=== PATIENT | male | born 1925 | race Caucasian/White ===

== ENCOUNTER 2016-06-28 07:09 | Outpatient (CLI) | payer MEDICARE | END 2016-06-28 07:10 | disposition home or self-care (01) | DX: I74.8 Embolism and thrombosis of other arteries (principal) ==

== ENCOUNTER 2016-07-19 07:35 | Outpatient (CLI) | payer MEDICARE | END 2016-07-19 07:36 | disposition home or self-care (01) | DX: I74.8 Embolism and thrombosis of other arteries (principal) ==

== ENCOUNTER 2016-08-09 07:29 | Outpatient (CLI) | payer MEDICARE | END 2016-08-09 07:30 | disposition home or self-care (01) | DX: I74.8 Embolism and thrombosis of other arteries (principal) ==

== ENCOUNTER 2016-08-12 | Outpatient (CLI) | payer MEDICARE, OTHER | END 2016-08-12 08:33 | disposition short-term general hospital (02) | CPT/HCPCS: A0170; A0425; A0427 ==

== ENCOUNTER 2016-08-20 07:05 | Outpatient (CLI) | payer MEDICARE, OTHER | END 2016-08-20 07:06 | disposition home or self-care (01) | DX: I74.8 Embolism and thrombosis of other arteries (principal) ==

== ENCOUNTER 2016-08-20 08:44 | Outpatient (CLI) | payer MEDICARE, OTHER | END 2016-08-20 08:45 | disposition short-term general hospital (02) | DX: R07.2 Precordial pain (principal); S81.802A Unspecified open wound, left lower leg, initial encounter; S30.1XXA Contusion of abdominal wall, initial encounter; X58.XXXA Exposure to other specified factors, initial encounter; Z95.5 Presence of coronary angioplasty implant and graft | CPT/HCPCS: A0425; A0427 ==

== ENCOUNTER 2016-08-31 11:07 | Outpatient (CLI) | payer MEDICARE, OTHER | END 2016-08-31 11:08 | disposition home or self-care (01) | DX: I25.10 Atherosclerotic heart disease of native coronary artery without angina pectoris (principal); I20.9 Angina pectoris, unspecified ==

== ENCOUNTER 2016-09-11 07:08 | Outpatient (CLI) | payer MEDICARE, OTHER | END 2016-09-11 07:09 | disposition home or self-care (01) | DX: I74.8 Embolism and thrombosis of other arteries (principal) ==

== ENCOUNTER 2016-09-25 07:25 | Outpatient (CLI) | payer MEDICARE, OTHER | END 2016-09-25 07:26 | disposition home or self-care (01) | DX: I74.8 Embolism and thrombosis of other arteries (principal) ==

== ENCOUNTER 2016-10-16 07:19 | Outpatient (CLI) | payer MEDICARE, OTHER | END 2016-10-16 07:20 | disposition home or self-care (01) | DX: I74.8 Embolism and thrombosis of other arteries (principal) ==

== ENCOUNTER 2016-11-16 07:33 | Outpatient (CLI) | payer MEDICARE, OTHER | END 2016-11-16 07:34 | disposition home or self-care (01) | DX: I74.8 Embolism and thrombosis of other arteries (principal) ==

== ENCOUNTER 2016-11-23 07:09 | Outpatient (CLI) | payer MEDICARE, OTHER | END 2016-11-23 07:10 | disposition home or self-care (01) | LOC: LAB.F 07:09 | PROVIDERS: ATTEND Internal Medicine | DX: I74.8 Embolism and thrombosis of other arteries (principal) | CPT/HCPCS: 85610 ==

== ENCOUNTER 2016-12-07 07:08 | Outpatient (CLI) | payer MEDICARE, OTHER | END 2016-12-07 07:09 | disposition home or self-care (01) | LOC: LAB.F 07:08 | PROVIDERS: ATTEND Internal Medicine | DX: I74.8 Embolism and thrombosis of other arteries (principal) | CPT/HCPCS: 85610 ==

== ENCOUNTER 2016-12-13 11:29 | Outpatient (CLI) | payer MEDICARE, OTHER ==
[2016-12-13 12:27] LABS: BASOPHILS % (AUTO) 0.4 %; EOSINOPHILS # (AUTO) 0.4 10^3/uL (0.0-0.7); HCT - HEMATOCRIT 30.6 % (42.0-52.0); HGB - HEMOGLOBIN 10.2 g/dL (14.0-18.0); LYMPHOCYTES # (AUTO) 1.1 10^3/uL (1.5-3.5); LYMPHOCYTES % (AUTO) 19.3 %; MEAN CORPUSCULAR HEMOGLOBIN 32.2 pg (27.0-31.0); MEAN CORPUSCULAR HGB CONC 33.3 g/dL (32.0-36.0); MEAN CORPUSCULAR VOLUME 96.8 fL (80.0-94.0); MEAN PLATELET VOLUME 8.4 fL (7.4-11.4); MONOCYTES % (AUTO) 16.7 %; NEUTROPHILS # (AUTO) 3.4 10^3/uL (1.5-6.6); NEUTROPHILS % (AUTO) 56.6 %; NUCLEATED RED BLOOD CELLS AUTO 0.1 /100WBC; RED BLOOD COUNT 3.16 10^6/uL (4.70-6.10); RED CELL DISTRIBUTION WIDTH 14.3 % (12.0-15.0)
[2016-12-13 12:39] LABS: ALBUMIN/GLOBULIN RATIO 1.3 (1.0-2.2); BILIRUBIN,TOTAL 0.9 mg/dL (0.2-1.0); CALCIUM 8.8 mg/dL (8.5-10.3); CREATININE 1.6 mg/dL (0.6-1.2); POTASSIUM 4.7 mmol/L (3.5-5.0); TOTAL PROTEIN 6.3 g/dL (6.7-8.2)
== END 2016-12-13 11:30 | disposition home or self-care (01) ==
LOC: LAB 11:29
PROVIDERS: ATTEND Internal Medicine Cardiovascular Disease
DX: I25.10 Atherosclerotic heart disease of native coronary artery without angina pectoris (principal)
CPT/HCPCS: 36415; 80053; 85025

== ENCOUNTER 2016-12-31 07:14 | Outpatient (CLI) | payer MEDICARE, OTHER | END 2016-12-31 07:15 | disposition home or self-care (01) | LOC: LAB.F 07:14 | PROVIDERS: ATTEND Internal Medicine | DX: I74.8 Embolism and thrombosis of other arteries (principal) | CPT/HCPCS: 85610 ==

== ENCOUNTER 2016-12-31 07:16 | Outpatient (CLI) | payer MEDICARE, OTHER ==
[2016-12-31 12:55] LABS: CALCIUM 9.3 mg/dL (8.5-10.3); CREATININE 1.8 mg/dL (0.6-1.2); POTASSIUM 4.5 mmol/L (3.5-5.0)
== END 2016-12-31 07:17 | disposition home or self-care (01) ==
LOC: LAB.F 07:16
PROVIDERS: ATTEND Internal Medicine Cardiovascular Disease
DX: I25.10 Atherosclerotic heart disease of native coronary artery without angina pectoris (principal); R60.0 Localized edema
CPT/HCPCS: 36415; 80048; 85610

== ENCOUNTER 2017-01-04 07:19 | Outpatient (CLI) | payer MEDICARE, OTHER | END 2017-01-04 07:20 | disposition home or self-care (01) | LOC: LAB.F 07:19 | PROVIDERS: ATTEND Internal Medicine | DX: I74.8 Embolism and thrombosis of other arteries (principal) | CPT/HCPCS: 85610 ==

== ENCOUNTER 2017-01-18 07:16 | Outpatient (CLI) | payer MEDICARE, OTHER | END 2017-01-18 07:17 | disposition home or self-care (01) | LOC: LAB.F 07:16 | PROVIDERS: ATTEND Internal Medicine | DX: I74.8 Embolism and thrombosis of other arteries (principal) | CPT/HCPCS: 85610 ==

== ENCOUNTER 2017-01-28 07:25 | Outpatient (CLI) | payer MEDICARE, OTHER | END 2017-01-28 07:26 | disposition home or self-care (01) | LOC: LAB.F 07:25 | PROVIDERS: ATTEND Internal Medicine | DX: I74.8 Embolism and thrombosis of other arteries (principal) | CPT/HCPCS: 85610 ==

== ENCOUNTER 2017-01-31 11:50 | Outpatient (CLI) | payer MEDICARE, OTHER ==
[2017-01-31 12:36] LABS: CALCIUM 8.9 mg/dL (8.5-10.3); CREATININE 1.8 mg/dL (0.6-1.2); MAGNESIUM 2.4 mg/dL (1.7-2.8); POTASSIUM 4.2 mmol/L (3.5-5.0)
== END 2017-01-31 11:51 | disposition home or self-care (01) ==
LOC: LAB 11:50
PROVIDERS: ATTEND Internal Medicine Cardiovascular Disease
DX: N18.9 Chronic kidney disease, unspecified (principal)
CPT/HCPCS: 36415; 80048; 83735

== ENCOUNTER 2017-02-04 11:18 | Outpatient (CLI) | payer MEDICARE, OTHER | END 2017-02-04 11:19 | disposition home or self-care (01) | LOC: DI 11:18 | PROVIDERS: ATTEND Internal Medicine Cardiovascular Disease | DX: I50.9 Heart failure, unspecified (principal); I51.7 Cardiomegaly; Z95.0 Presence of cardiac pacemaker | CPT/HCPCS: 93306 ==

== ENCOUNTER 2017-02-11 08:00 | Outpatient (CLI) | payer MEDICARE, OTHER | END 2017-02-11 08:01 | disposition home or self-care (01) | LOC: LAB.F 08:00 | PROVIDERS: ATTEND Internal Medicine | DX: I74.8 Embolism and thrombosis of other arteries (principal) | CPT/HCPCS: 85610 ==

== ENCOUNTER 2017-03-04 07:16 | Outpatient (CLI) | payer MEDICARE, OTHER | END 2017-03-04 07:17 | disposition home or self-care (01) | LOC: LAB.F 07:16 | PROVIDERS: ATTEND Internal Medicine | DX: I74.8 Embolism and thrombosis of other arteries (principal) | CPT/HCPCS: 85610 ==

== ENCOUNTER 2017-04-01 07:21 | Outpatient (CLI) | payer MEDICARE, OTHER | END 2017-04-01 07:22 | disposition home or self-care (01) | LOC: LAB.F 07:21 | PROVIDERS: ATTEND Internal Medicine | DX: I74.8 Embolism and thrombosis of other arteries (principal) | CPT/HCPCS: 85610 ==

== ENCOUNTER 2017-04-08 03:10 | Outpatient (CLI) | payer MEDICARE, OTHER | END 2017-04-08 03:11 | disposition critical access hospital (66) | LOC: EMS 03:10 | PROVIDERS: ATTEND Surgery | DX: R06.02 Shortness of breath (principal); R10.9 Unspecified abdominal pain | CPT/HCPCS: A0425; A0427 ==

== ENCOUNTER 2017-04-08 03:33 | Inpatient (IN) | payer MEDICARE, OTHER ==
[2017-04-08] MEDS ORDERED: FUROSEMIDE 40 MG/4 ML VIAL IVP STA (04:00)
[2017-04-08 04:02] LABS: BASOPHILS % (AUTO) 0.2 %; EOSINOPHILS # (AUTO) 0.1 10^3/uL (0.0-0.7); EOSINOPHILS % (AUTO) 1.6 %; HCT - HEMATOCRIT 30.6 % (42.0-52.0); HGB - HEMOGLOBIN 10.3 g/dL (14.0-18.0); LYMPHOCYTES # (AUTO) 0.8 10^3/uL (1.5-3.5); LYMPHOCYTES % (AUTO) 9.5 %; MEAN CORPUSCULAR HEMOGLOBIN 32.5 pg (27.0-31.0); MEAN CORPUSCULAR HGB CONC 33.6 g/dL (32.0-36.0); MEAN CORPUSCULAR VOLUME 96.7 fL (80.0-94.0); MEAN PLATELET VOLUME 8.9 fL (7.4-11.4); MONOCYTES # (AUTO) 0.3 10^3/uL (0.0-1.0); MONOCYTES % (AUTO) 3.4 %; NEUTROPHILS # (AUTO) 7.3 10^3/uL (1.5-6.6); NEUTROPHILS % (AUTO) 85.3 %; RED BLOOD COUNT 3.17 10^6/uL (4.70-6.10); RED CELL DISTRIBUTION WIDTH 13.9 % (12.0-15.0); UNCORRECTED WHITE BLOOD COUNT 8.6 x10^3/uL; WHITE BLOOD COUNT 8.6 x10^3/uL (4.8-10.8)
--- NOTE | 2017-04-08 04:02 | ED Physician Documentation ---
PD HPI DYSPNEA - Stated complaint Stated Complaint: SOA/ABD PAIN - Chief complaint Chief Complaint: Resp - History obtained from History obtained from: Patient, Family, EMS - History of Present Illness Timing - onset: Today Timing - onset during: Light activity Timing - details: Abrupt onset, Still present Improved by: O2, Sitting up Worsened by: Exertion Associated symptoms: Cough, Wheezing, Diaphoresis, Bilateral edema. No: Fever, Chest pain / discomfort, Palpitations Similar symptoms before: Work up / diagnostics, Treatment Recently seen: Not recently seen - Additional information Additional information: Patient is an 89 year old male with extensive cardiac history who is presenting to the emergency department for shortness of breath. According to patient, family and ems patient got up to go to the bathroom but while trying to walk there he got very short of breath and diaphoretic. He called out to his who called ems. When ems arrived patient was breathing at approximately 40 bpm. Patient was also hypoxic at 88%. Upon initial evaluation in the emergency department patient was still tachypneic but feeling a bit better with supplemental oxygen. Review of Systems Constitutional: denies: Fever, Myalgias Eyes: denies: Decreased vision, Photophobia Ears: denies: Ear pain, Drainage/discharge Nose: denies: Congestion Throat: denies: Sore throat Cardiac: reports: Pedal edema. denies: Chest pain / pressure, Palpitations Respiratory: reports: Dyspnea, Cough, Wheezing GI: reports: Abdominal Pain, Nausea, Constipation. denies: Vomiting, Diarrhea : denies: Dysuria, Frequency Skin: denies: Rash, Lesions Musculoskeletal: reports: Extremity swelling Neurologic: reports: Generalized weakness. denies: Focal weakness, Numbness Psychiatric: denies: Depressed Immunocompromised: denies: Immunocompromised PD PAST MEDICAL HISTORY - Past Medical History Past Medical History: Yes Cardiovascular: Other Respiratory: None GI: None : Frequency HEENT: Chronic vision loss, Macular degeneration, Chronic hearing loss Psych: Depression Musculoskeletal: Other Derm: Other - Past Surgical History Past Surgical History: Yes Ortho: Other Cardiovascular: CABG, Pacemaker HEENT: Cataracts Derm: Skin cancer surgery - Present Medications Home Medications: Ambulatory Orders Medication Instructions Recorded Confirmed Alprazolam 0.25 mg PO DAILY 12/30/13 04/08/17 Atorvastatin [Lipitor] 40 mg PO DAILY 12/30/13 04/08/17 Calcium Carb, Citrate/Vit D3 600 mg PO DAILY 12/30/13 04/08/17 [Calcium + D3 ER Tablet] Multivitamin [Multi-Day Vitamins] 1 each PO DAILY 12/30/13 04/08/17 Magnolia-3/Dha/Epa/Fish Oil [Magnolia-3 1 ea PO DAILY 12/30/13 02/10/14 Fish Oil Softgel] Pantoprazole Sodium 40 mg PO DAILY 12/30/13 04/08/17 Tamsulosin [Flomax] 0.4 mg PO DAILY 12/30/13 04/08/17 Tramadol HCl 50 mg PO BID 12/30/13 04/08/17 Metoprolol Succinate [Toprol Xl] 50 mg PO DAILY 02/10/14 04/08/17 Acetaminophen [Tylenol Extra 2 tab PO DAILY 04/08/17 04/08/17 Strength] Amlodipine Besylate 1 tab PO DAILY 04/08/17 04/08/17 Clopidogrel Bisulfate [Clopidogrel] 1 tab PO DAILY 04/08/17 04/08/17 Furosemide 1 tab PO DAILY 04/08/17 04/08/17 Isosorbide Mononitrate [Isosorbide 1 tab PO DAILY 04/08/17 04/08/17 Mononitrate ER] Ranolazine [Ranexa] 500 mg PO BID 04/08/17 04/08/17 Sertraline HCl 1 tab PO DAILY 04/08/17 04/08/17 Warfarin Sodium 4 mg PO DAILY 04/08/17 04/08/17 - Allergies Allergies/Adverse Reactions: Allergies Allergy/AdvReac Type Severity Reaction Status Date / Time esomeprazole [From Nexium] Allergy Hives Verified 04/08/17 04:24 oxaprozin [From Daypro] Allergy Hives Verified 04/08/17 04:24 esomeprazole magnesium * AdvReac Rash Verified 04/08/17 04:24 [From Nexium] - Social History Does the pt smoke?: No Smoking Status: Never smoker Does the pt drink ETOH?: Yes ETOH Use: Liquor Does the pt have substance abuse?: No - Immunizations Immunizations are current?: Yes - POLST Patient has POLST: No PD ED PE NORMAL - Vitals Vital signs reviewed: Yes - General General: Alert and oriented X 3 - HEENT HEENT: Atraumatic, PERRL, Ears normal - Cardiac Cardiac: Other (paced) PD ED PE EXPANDED - General General: Alert, In distress - HEENT HEENT: Dry mucous membranes - Neck Neck: JVD present - Respiratory Respiratory: Accessory mm use, Wheezing, Right upper lobe, Right middle lobe, Right lower lobe, Left upper lobe, Left lower lobe, Other (tachypnea and cardiac wheeze) - Abdomen Abdomen: Tender to palpation, Generalized/diffuse - Derm Derm: Diaphoretic - Extremities Extremities: Pedal edema bilateral Results - Vitals Vitals: Vital Signs - 24 hr 04/08/17 04/08/17 03:35 04:22 Temperature 37.1 C Heart Rate 87 73 Respiratory 44 H 25 H Rate Blood Pressure 161/62 H 135/57 H O2 Saturation 87 L 97 Oxygen O2 Source Nasal cannula Oxygen Flow Rate 2 - EKG (time done) 0346 Rate: Rate (enter#) (82) Rhythm: Paced Compare to prior EKG: Unchanged from prior EKG - Labs Labs: Laboratory Tests 04/08/17 04/08/17 04/08/17 03:54 03:54 03:54 WBC 8.6 RBC 3.17 L Hgb 10.3 L Hct 30.6 L MCV 96.7 H MCH 32.5 H MCHC 33.6 RDW 13.9 Plt Count 139 MPV 8.9 Neut # 7.3 H Lymph # 0.8 L Jackson # 0.3 Eos # 0.1 Baso # 0.0 Absolute Nucleated RBC 0.00 Nucleated RBC % 0.0 PT 25.2 H INR 2.2 H Sodium 132 L Potassium 4.2 Chloride 97 L Carbon Dioxide 22 Anion Gap 13.0 BUN 49 H Creatinine 1.9 H Estimated GFR (MDRD) 34 L Glucose 174 H Lactic Acid Calcium 8.9 Phosphorus 3.4 Magnesium 1.9 Total Bilirubin 0.8 AST 26 ALT 26 Alkaline Phosphatase 85 Troponin I B-Natriuretic Peptide Total Protein 6.8 Albumin 3.5 Globulin 3.3 Albumin/Globulin Ratio 1.1 Lipase 19 L TSH 04/08/17 04/08/17 04/08/17 03:54 03:54 03:54 WBC RBC Hgb Hct MCV MCH MCHC RDW Plt Count MPV Neut # Lymph # Jackson # Eos # Baso # Absolute Nucleated RBC Nucleated RBC % PT INR Sodium Potassium Chloride Carbon Dioxide Anion Gap BUN Creatinine Estimated GFR (MDRD) Glucose Lactic Acid 1.3 Calcium Phosphorus Magnesium Total Bilirubin AST ALT Alkaline Phosphatase Troponin I 0.04 B-Natriuretic Peptide 1450 H Total Protein Albumin Globulin Albumin/Globulin Ratio Lipase TSH 04/08/17 03:54 WBC RBC Hgb Hct MCV MCH MCHC RDW Plt Count MPV Neut # Lymph # Jackson # Eos # Baso # Absolute Nucleated RBC Nucleated RBC % PT INR Sodium Potassium Chloride Carbon Dioxide Anion Gap BUN Creatinine Estimated GFR (MDRD) Glucose Lactic Acid Calcium Phosphorus Magnesium Total Bilirubin AST ALT Alkaline Phosphatase Troponin I B-Natriuretic Peptide Total Protein Albumin Globulin Albumin/Globulin Ratio Lipase TSH 1.00 - Rads (name of study) chest x-ray Radiology: Final report received, EMP read contemporaneously (pulmonary vascular congestion) PD MEDICAL DECISION MAKING - ED course Complexity details: reviewed old records, reviewed results, re-evaluated patient , considered differential, d/w patient, d/w family, d/w bus info consultant ED course: Patient was seen and examined at bedside. IV access was gained and labs were drawn. ekg was performed which showed a paced rhythm. patient was 87% on room air and was treated with supplemental oxygen. chest x-ray was ordered. Patient had no history of pulmonary disease in the past and was most likely fluid overloaded and was treated with lasix 40mg IV. The rest of the patient's diagnostics were consistent with chf. Case was discussed with hospitalist who agreed to admission. patient was admitted for further evaluation and care. Departure - Departure Disposition: 66 [facility] DC/Xfer Clinical Impression: Congestive heart failure Condition: Stable
[2017-04-08 04:11] LABS: INR 2.2 (0.8-1.2); PT - PROTHROMBIN TIME 25.2 secs (9.9-12.6)
[2017-04-08 04:14] LABS: ALBUMIN/GLOBULIN RATIO 1.1 (1.0-2.2); BILIRUBIN,TOTAL 0.8 mg/dL (0.2-1.0); CALCIUM 8.9 mg/dL (8.5-10.3); CREATININE 1.9 mg/dL (0.6-1.2); MAGNESIUM 1.9 mg/dL (1.7-2.8); PHOSPHORUS 3.4 mg/dL (2.5-4.6); POTASSIUM 4.2 mmol/L (3.5-5.0); TOTAL PROTEIN 6.8 g/dL (6.7-8.2)
--- NOTE | 2017-04-08 04:27 | XRAY Preliminary Report ---
Exam: XR CHEST 1 VIEW IMPRESSION: 1. Cardiomegaly and postoperative changes with pulmonary edema, consistent with congestive heart fail ure. 2. Hiatal hernia. [facility] SITE ID: [id number]
[2017-04-08] MEDS ORDERED: oxyCODONE 5 MG TABLET PO PRN ×2 (04:28→06:00)
[2017-04-08] MEDS ORDERED: ONDANSETRON 4 MG/2 ML VIAL IVP PRN ×2 (04:28→06:00)
[2017-04-08] MEDS ORDERED: SODIUM CHLORIDE FLUSH 0.9% 10 ML SYRINGE IVP PRN ×2 (04:28→06:00)
[2017-04-08] MEDS ORDERED: ACETAMINOPHEN 325 MG TABLET PO PRN ×2 (04:28→06:00)
[2017-04-08] MEDS ORDERED: PROCHLORPERAZINE 10 MG/2 ML VIAL IVP PRN ×2 (04:28→06:00)
--- NOTE | 2017-04-08 04:30 | XRAY Report ---
EXAM: CHEST RADIOGRAPHY EXAM DATE: 04/08/2017 04:17 AM. CLINICAL HISTORY: Short of breath, hypoxic. COMPARISON: 03/31/2012. TECHNIQUE: 1 view. FINDINGS: Lungs/Pleura: Pulmonary vascular congestion with presumed interstitial edema. No signal or pleural ef fusion. No pneumothorax. Mediastinum: Mild to moderate cardiomegaly. Aortic atherosclerosis. Hiatal hernia. Other: Median sternotomy. Implanted bipolar pacemaker on the left with leads in expected positions. R ight shoulder prosthesis. IMPRESSION: 1. Cardiomegaly and postoperative changes with pulmonary edema, consistent with congestive heart fail ure. 2. Hiatal hernia. [facility] Referring Provider Line: [phone] SITE ID: [id number]
[2017-04-08] MEDS ORDERED: FUROSEMIDE 40 MG/4 ML VIAL ONE (04:39)
--- NOTE | 2017-04-08 05:52 | HISTORY & PHYSICAL EXAMINATION ---
Chief Complaint - Chief Complaint Chief Complaint: Shortness of air History of Present Illness - Admitted From Admitted From:: Emergency department - History Obtained From Records Reviewed: Yes History obtained from: Patient and his - History of Present Illness HPI Comment/Other: Patient is an 89-year-old gentleman with a past medical history significant for coronary artery disease status post CABG in 1995 and multiple stents in 2009, atrial fibrillation on Coumadin, pacemaker, hypertension, CKD stage III, systolic heart failure, osteoarthritis and hyperlipidemia who presented to the emergency department with a chief complaint of shortness of air. The patient states that he was in his normal state of health until this evening. He states that he woke up from sleep around midnight and was feeling a cramping type of pain in the lower abdomen. He states he felt as though he had to go to the bathroom but when he sat on the toilet he was constipated and despite trying could not get himself to go. The patient states that he then went back to his bed and when he laid down he began feeling acutely short of air. He states he sat up but could not breathe and eventually asked his to call 911. According to the patient's the patient is very compliant with his medications, he eats a low-salt diet and exercises regularly. She states that yesterday the patient's son and [id number] came over and the daughter-in- law brought home cooking. The was concerned that the patient ate some gravy and meats that may have been very high in sodium as the food was not prepared by the patient's . The patient otherwise denies having any chest pain, fevers, chills or any coughing. The patient states that he did become very nauseous after he had the constipation and abdominal pain but states he did not vomit. Patient states that the nausea is now completely resolved but he does continue to have some lower abdominal pain that is constant and about a 2 out of 10. When paramedics arrived at the patient's home the patient was in severe respiratory distress breathing at 50 breaths a minute and using accessory muscles of breathing. The paramedics also noted that the patient had significant crackles on examination. The patient's oxygen saturation was 88% and he was placed on oxygen and brought to the emergency department. The patient denies any headaches, blurred vision, runny nose, sore throat, nasal congestion, difficulty swallowing, neck pain, increased lower extremity swelling, diarrhea, urinary urgency, urinary frequency, dysuria, muscle aches, joint pain or joint swelling, changes in his appetite, recent unintentional weight loss or weight gain, polydipsia, polyuria, neck stiffness or any focal neurologic deficits. On presentation to the emergency department the patient was in acute respiratory distress as he was breathing at 44 times a minute, was hypertensive with a blood pressure of 161/62 and hypoxic with an oxygen saturation of 87% on room air. The patient was placed on oxygen and immediately given Lasix in the emergency department as he did have crackles on examination and appear to be in congestive heart failure. After receiving Lasix the patient did have some urine output and seem to have significant improvement. The patient's breathing seemed to stabilize in the emergency department. Lab tests revealed that the patient had a BNP of 1450, negative troponin and negative EKG. The patient's chest x-ray showed cardiomegaly with pulmonary edema consistent with congestive heart failure. The patient was admitted for CHF exacerbation. History - Past Medical History Cardiovascular: reports: Congestive heart failure (Systolic EF 50%), Hypertension, High cholesterol, Coronary artery disease, Atrial fibrillation, Other (Pacemaker) Respiratory: reports: None GI: reports: Hiatal hernia : reports: Benign prostate hypertrophy, Renal insuffiency (CKD stage III), Frequency HEENT: reports: Chronic vision loss, Macular degeneration, Chronic hearing loss Psych: reports: Depression Musculoskeletal: reports: Osteoarthritis, Other (Right rotator cuff repair) Derm: reports: Other MRSA Hx?: No Other Past Medical History: Anemia, angioplasty of the brachial artery. - Past Surgical History Ortho: reports: Rotator cuff repair, Other (Angioplasty of the brachial artery) Cardiovascular: reports: CABG, Coronary stent, Pacemaker HEENT: reports: Cataracts Derm: reports: Skin cancer surgery - Family & Social History Family History: Mother: (Mom at 94 and dad at 70), Cancer ( Mom had breast cancer and dad had lymphoma), Father: , Cancer Living arrangement: At home Living Situation: With spouse/s.o. Social History Notes: The patient lives with his in [place] near [facility]. They have lived there for 17 years prior to that they lived in [place], [place] where they had a larger home but downsized so they did not have any stairs. The patient and his moved [place] in [place] prior to that they lived in [place]. The patient and his have known each other since grade school. They have now been for 69 years and will be celebrating their 70th wedding anniversary in October. The patient is retired he used to work for a [employer] company. The patient has 2 children both of whom are now retired. Patient's daughter was a teacher and a principal. The patient's son worked for a wine distributor. The patient has never smoked but does drink a glass of bourbon and water every night before his meal. The patient has never used any illicit drugs. - Substance History Use: Uses substance without health or social issues: NONE Abuse: Recurrent use of substance despite neg consequences: NONE Dependence: Experiences withdrawal or developed tolerances: NONE - POLST Patient has POLST: No POLST Status: Full Code Meds/Allgy - Home Medications Home Medications: Ambulatory Orders Medication Instructions Recorded Confirmed Alprazolam 0.25 mg PO DAILY 12/30/13 04/08/17 Atorvastatin [Lipitor] 40 mg PO DAILY 12/30/13 04/08/17 Calcium Carb, Citrate/Vit D3 600 mg PO DAILY 12/30/13 04/08/17 [Calcium + D3 ER Tablet] Multivitamin [Multi-Day Vitamins] 1 each PO DAILY 12/30/13 04/08/17 Stanchfield-3/Dha/Epa/Fish Oil [Stanch[place]-3 1 ea PO DAILY 12/30/13 02/10/14 Fish Oil Softgel] Pantoprazole Sodium 40 mg PO DAILY 12/30/13 04/08/17 Tamsulosin [Flomax] 0.4 mg PO DAILY 12/30/13 04/08/17 Tramadol HCl 50 mg PO BID 12/30/13 04/08/17 Metoprolol Succinate [Toprol Xl] 50 mg PO DAILY 02/10/14 04/08/17 Acetaminophen [Tylenol Extra 2 tab PO DAILY 04/08/17 04/08/17 Strength] Amlodipine Besylate 1 tab PO DAILY 04/08/17 04/08/17 Clopidogrel Bisulfate [Clopidogrel] 1 tab PO DAILY 04/08/17 04/08/17 Furosemide 1 tab PO DAILY 04/08/17 04/08/17 Isosorbide Mononitrate [Isosorbide 1 tab PO DAILY 04/08/17 04/08/17 Mononitrate ER] Ranolazine [Ranexa] 500 mg PO BID 04/08/17 04/08/17 Sertraline HCl 1 tab PO DAILY 04/08/17 04/08/17 Warfarin Sodium 4 mg PO DAILY 04/08/17 04/08/17 - Allergies Allergies/Adverse Reactions: Allergies Allergy/AdvReac Type Severity Reaction Status Date / Time esomeprazole [From Nexium] Allergy Hives Verified 04/08/17 04:24 oxaprozin [From Daypro] Allergy Hives Verified 04/08/17 04:24 esomeprazole magnesium * AdvReac Rash Verified 04/08/17 04:24 [From Nexium] Review of Systems - Other Findings Other Findings: A comprehensive review of systems was performed the pertinent positives and negatives are stated above in the HPI and the remainder of the review of systems is negative. Exam - Vital Signs Reviewed Vital Signs: Yes Vital Signs: Vital Signs x48h Temp Pulse Resp BP Pulse Ox 04/08/17 05:11 37.3 C 65 24 129/47 L 95 04/08/17 04:22 73 25 H 135/57 H 97 04/08/17 03:35 37.1 C 87 44 H 161/62 H 87 L - Physical Exam General Appearance: positive: Alert, Mild distress (Patient only mildly tachypneic after Lasix), Other (Frail and elderly) Eyes Bilateral: positive: Normal inspection, PERRL, EOMI, No lid inflammation, Conjunctivae nml, No scleral icterus ENT: positive: ENT inspection nml, Pharynx nml, No signs of dehydration. negative: Purulent nasal drainage, Pharyngeal erythema, Oral lesions Neck: positive: Nml inspection, Thyroid nml, Trachea midline, Other (Mild JVD). negative: Thyromegaly, Lymphadenopathy (R), Lymphadenopathy (L), Stiff neck, Carotid bruit, Tracheal deviation Respiratory: positive: Chest non-tender, Rales (Bibasilar crackles). negative: Wheezes, Rhonchi Cardiovascular: positive: Regular rate & rhythm, No murmur, No gallop, JVD present Peripheral Pulses: positive: 2+ Abdomen: positive: No organomegaly, Nml bowel sounds, Tenderness (Mild tenderness in the lower abdomen). negative: Guarding, Rebound, Hepatomegaly Back: positive: Nml inspection. negative: CVA tenderness (R), CVA tenderness (L ), Other Skin: positive: Color nml, No rash, Warm. negative: Cyanosis, Diaphoresis, Pallor Extremities: positive: Non-tender, Pedal edema (Bilateral 2+ pitting edema), Other (Limited range of motion of the right shoulder) Neurologic/Psychiatric: positive: Oriented x3, CN's nml (2-12), Motor nml, Sensation nml, Mood/affect nml, Other (Hard of hearing) Conclusion/Plan - Problem List (1) CHF exacerbation Conclusion/Plan: Patient presented with acute respiratory distress. Patient was tachypneic at home breathing at 50 times a minute. The patient was hypoxic down to 88%. His exam revealed crackles bilaterally with edema in his lower extremities. The patient had a positive JVD. His BNP was elevated at over thousand. Patient's chest x-ray showed bilateral pulmonary edema consistent with CHF. Patient improved with Lasix in the emergency department. Because of the patient's exacerbation is not completely clear but may be secondary to some flash pulmonary edema due to a combination of increased sodium intake yesterday and being constipated and in pain this evening. We will also need to rule out ACS given the patient's cardiac history. 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 The patient states however tonight his constipation was much worse. The patient was having lower abdominal pain and had nausea and felt as though he was going to vomit. Soon after having this episode the patient went into congestive heart failure and respiratory distress. The patient continues to have some mild lower abdominal discomfort. He states he is still constipated. Plan: Patient will be placed on a bowel protocol and we will aggressively treat his constipation. Qualifiers: Constipation type: drug induced constipation Qualified Code(s): K59.03 - Drug induced constipation (3) Hypertension Conclusion/Plan: Patient has history of hypertension which is controlled with amlodipine, Lasix, metoprolol and isosorbide mononitrate the patient was hypertensive on presentation it is possible that the patient may have had some flash pulmonary edema due to hypertensive emergency. Plan: Patient will be placed on IV Lasix and continued on his home antihypertensive medications. We will monitor blood pressure closely and titrate medications as needed. Qualifiers: Hypertension type: essential hypertension Qualified Code(s): I10 - Essential (primary) hypertension (4) Atrial fibrillation Conclusion/Plan: Patient has history of atrial fibrillation and is on Coumadin. The patient's rate is controlled he is on metoprolol and has a pacemaker. Plan: Patient will be continued on Coumadin his INR is therapeutic at 2.2 we will continue to monitor a daily Patient will be continued on metoprolol as his rate is well controlled Qualifiers: Atrial fibrillation type: chronic Qualified Code(s): I48.2 - Chronic atrial fibrillation (5) Chronic pain Conclusion/Plan: Patient has chronic pain due to multiple surgeries on his right shoulder and osteoarthritis. The patient takes tramadol for his pain. We will continue the patient's home dose of tramadol and use an aggressive bowel regimen as he is constipated. The patient will also receive Tylenol as needed and Murdock as needed. Qualifiers: Chronic pain type: other chronic pain Qualified Code(s): G89.29 - Other chronic pain - Lab Results Lab results reviewed: Yes Fish Bones: 04/08/17 03:54 04/08/17 03:54 Other Lab Results: Laboratory Results WBC 8.6 x10^3/uL (4.8-10.8) 04/08/17 03:54 RBC 3.17 10^6/uL (4.70-6.10) L 04/08/17 03:54 Hgb 10.3 g/dL (14.0-18.0) L 04/08/17 03:54 Hct 30.6 % (42.0-52.0) L 04/08/17 03:54 MCV 96.7 fL (80.0-94.0) H 04/08/17 03:54 MCH 32.5 pg (27.0-31.0) H 04/08/17 03:54 MCHC 33.6 g/dL (32.0-36.0) 04/08/17 03:54 RDW 13.9 % (12.0-15.0) 04/08/17 03:54 Plt Count 139 10^3/uL (130-450) 04/08/17 03:54 MPV 8.9 fL (7.4-11.4) 04/08/17 03:54 Neut # 7.3 10^3/uL (1.5-6.6) H 04/08/17 03:54 Lymph # 0.8 10^3/uL (1.5-3.5) L 04/08/17 03:54 Gordon # 0.3 10^3/uL (0.0-1.0) 04/08/17 03:54 Eos # 0.1 10^3/uL (0.0-0.7) 04/08/17 03:54 Baso # 0.0 10^3/uL (0.0-0.1) 04/08/17 03:54 Absolute Nucleated RBC 0.00 x10^3/uL 04/08/17 03:54 Nucleated RBC % 0.0 /100WBC 04/08/17 03:54 PT 25.2 secs (9.9-12.6) H 04/08/17 03:54 INR 2.2 (0.8-1.2) H 04/08/17 03:54 Sodium 132 mmol/L (135-145) L 04/08/17 03:54 Potassium 4.2 mmol/L (3.5-5.0) 04/08/17 03:54 Chloride 97 mmol/L (101-111) L 04/08/17 03:54 Carbon Dioxide 22 mmol/L (21-32) 04/08/17 03:54 Anion Gap 13.0 (6-13) 04/08/17 03:54 BUN 49 mg/dL (6-20) H 04/08/17 03:54 Creatinine 1.9 mg/dL (0.6-1.2) H 04/08/17 03:54 Estimated GFR (MDRD) 34 (>89) L 04/08/17 03:54 Glucose 174 mg/dL (70-100) H 04/08/17 03:54 Lactic Acid 1.3 mmol/L (0.5-2.2) 04/08/17 03:54 Calcium 8.9 mg/dL (8.5-10.3) 04/08/17 03:54 Phosphorus 3.4 mg/dL (2.5-4.6) 04/08/17 03:54 Magnesium 1.9 mg/dL (1.7-2.8) 04/08/17 03:54 Total Bilirubin 0.8 mg/dL (0.2-1.0) 04/08/17 03:54 AST 26 IU/L (10-42) 04/08/17 03:54 ALT 26 IU/L (10-60) 04/08/17 03:54 Alkaline Phosphatase 85 IU/L (42-121) 04/08/17 03:54 Troponin I 0.04 ng/mL (<0.49) 04/08/17 03:54 B-Natriuretic Peptide 1450 pg/mL (5-100) H 04/08/17 03:54 Total Protein 6.8 g/dL (6.7-8.2) 04/08/17 03:54 Albumin 3.5 g/dL (3.2-5.5) 04/08/17 03:54 Globulin 3.3 g/dL (2.1-4.2) 04/08/17 03:54 Albumin/Globulin Ratio 1.1 (1.0-2.2) 04/08/17 03:54 Lipase 19 U/L (22-51) L 04/08/17 03:54 TSH 1.00 uIU/mL (0.34-5.60) 04/08/17 03:54 - Diagnostic Imaging Results Diagnostic Imaging Results: positive: Final report reviewed Diagnostic Imaging Results Comments: Chest x-ray Impression: 1. Cardiomegaly and postoperative changes with pulmonary edema, consistent with congestive heart failure. 2. Hiatal hernia - EKG Results EKG Interpreted Independently: Yes EKG Findings: Ventricularly paced rhythm unchanged from previous EKG. Issues/Core Measures - Anticipated LOS Anticipated Stay Length: 2 or more midnights - DVT/VTE - Prophylaxis VTE/DVT Device ordered at admit?: Yes
[2017-04-08] MEDS ORDERED: SODIUM CHLORIDE FLUSH 0.9% 10 ML SYRINGE IVP SCH ×2 (06:00)
[2017-04-08] MEDS ORDERED: POTASSIUM CHLORIDE 20 MEQ TABLET PO SCH ×2 (08:00)
[2017-04-08] MEDS ORDERED: NON FORMULARY MED (Atorvastatin [Lipitor] 40 MG) PO SCH (09:00)
[2017-04-08] MEDS ORDERED: MULTIVITAMIN TABLET PO SCH (09:00)
[2017-04-08] MEDS ORDERED: ASPIRIN EC 81 MG TABLET PO SCH ×2 (09:00)
[2017-04-08] MEDS ORDERED: POLYETHYLENE GLYCOL 3350 17 GM PACKET PO SCH ×2 (09:00)
[2017-04-08] MEDS ORDERED: traMADol 50 MG TABLET PO SCH (09:00)
[2017-04-08] MEDS ORDERED: FUROSEMIDE 40 MG/4 ML VIAL IVP SCH ×2 (09:00)
[2017-04-08] MEDS ORDERED: OMEGA-3 ACID ETHYL ESTERS 1 GM CAPSULE PO SCH (09:00)
[2017-04-08] MEDS ORDERED: ISOSORBIDE MONONITRATE ER 30 MG TABLET PO SCH ×2 (09:00→10:00)
[2017-04-08] MEDS ORDERED: TAMSULOSIN 0.4 MG CAPSULE PO SCH (09:00)
[2017-04-08] MEDS ORDERED: BENAZEPRIL HCL 10 MG PO SCH (09:00)
[2017-04-08] MEDS ORDERED: LISINOPRIL 5 MG TABLET PO SCH ×2 (09:00→10:00)
[2017-04-08] MEDS ORDERED: ATORVASTATIN 40 MG TABLET PO SCH ×2 (09:00→21:00)
[2017-04-08] MEDS ORDERED: SERTRALINE 50 MG TABLET PO SCH (09:00)
[2017-04-08] MEDS ORDERED: METOPROLOL SUCCINATE 50 MG TABLET PO SCH (09:00)
[2017-04-08] MEDS ORDERED: CHOLECALCIFEROL 400 UNIT TABLET PO SCH (09:00)
[2017-04-08] MEDS ORDERED: FAMOTIDINE 20 MG TABLET PO SCH ×2 (09:00)
[2017-04-08] MEDS ORDERED: amLODIPine 5 MG TABLET PO SCH (09:00)
[2017-04-08] MEDS ORDERED: CALCIUM CARBONATE CHEW 500 MG TABLET PO SCH (09:00)
[2017-04-08] MEDS ORDERED: CLOPIDOGREL 75 MG TABLET PO SCH (09:00)
[2017-04-08] MEDS ORDERED: ALPRAZolam 0.25 MG TABLET PO SCH ×2 (09:00)
--- NOTE | 2017-04-08 12:06 | Discharge Plan ---
Discharge Plan Disposition: 02 Transfer Acute Care Hosp Condition: Fair Diet: Cardiac (NPO for potential further cardiac work-up) Activity Restrictions: Activity as Tolerated Shower Restrictions: No Driving Restrictions: Yes Assistance Devices: Walker, Cane Weight Bearing: Full Weight Follow-Up Care: [facility] - Cardiac, [facility] - Medical No Smoking: If you smoke, Please STOP! Call for help. Follow-up with: Milton Kim MD [Primary Care Provider] -
--- NOTE | 2017-04-08 12:11 | DISCHARGE SUMMARY ---
"Discharge Summary Admit Date: 04/08/17 Discharge Date: 04/08/17 Discharging Provider: Cassandra Curiel NP Primary Care Provider: Milton Kim MD Code Status: Attempt Resuscitation Condition at Discharge: Fair Discharge Disposition: 02 Transfer Acute Care Hosp - DIAGNOSES Admission Diagnoses: Acute CHF exacerbation Constipation Respiratory distress Elevated BNP Discharge Diagnoses with Status of Each Condition: 1. Elevated troponin: Troponin was normal at 0.04 on admission, and elevated to 0.74 by [address] Spoke with Dr. Zapata, Cardiology who recommended a prompt transfer to [place]. 2. CHF exacerbation: BNP was elevated at 1450 on admission. Crackles can be auscultated over ALL bilateral lung ross. Patient has increased oxygen needs of 2L per nasal cannula, but now respiratory rate has normalized. Patient continues on 40mg IV furosemide BID. A bedside echocardiogram was completed with results pending. 3. Constipation: Patient is now on a bowel protocol including docusate-senna, mirralax and PRN suppository. Patient's typical bowel pattern is once per day, and is now on day 2 of having no results. Patient does note bilateral LQ tenderness with palpation, normal bowel sounds x4 quadrants. - HPI History of Present Illness: Robinson Negro is an 89 year old male with a history of CAD status post CABG in 1995 and multiple stents in 2009, atrial fibrillation on Coumadin therapy, status post pacemaker, HTN, CKD stage 3, systolic heart failure, osteoarthritis , and hyperlipidemia who presented to the ER with a chief complaint of SOB and constipation. Patient did not have a normal bowel movement yesterday and had very mild lower abdominal discomfort, so went to bed. He awoke with more lower abdominal discomfort around midnight accompanied by severe SOB. EMS were called and after arriving in ER patient was breathing at 44 bpm with sats in the mid-80's. The patient was mildly hypertensive, so was given oxygen via nasal cannula and IV furosemide. He was admitted with CHF exacerbation. Troponins were negative on admission, now elevated at 0.74. - CONSULTS | PROCEDURES Procedures: Echocardiogram-pending. Serial Troponins IV lasix Oxygen administration. - HOSPITAL COURSE Hospital Course: Patient was admitted with CHF exacerbation. Troponin was normal at 0.04 on admission, and elevated to 0.74 by 10am. Spoke with Dr. Zapata, Cardiology who recommended a prompt transfer to [place]. BNP was elevated at 1450 on admission. Crackles can be auscultated over ALL bilateral lung ross. Patient has increased oxygen needs of 2L per nasal cannula, but now respiratory rate has normalized. Patient continues on 40mg IV furosemide BID. A bedside echocardiogram was completed with results pending. Patient is now on a bowel protocol including docusate-senna, mirralax and PRN suppository. Patient's typical bowel pattern is once per day, and is now on day 2 of having no results. Patient does note bilateral LQ tenderness with palpation, normal bowel sounds x4 quadrants. Plans to transfer promptly to [place], awaiting telephone communication with admitting provider. - ALLERGIES Allergies/Adverse Reactions: Allergies Allergy/AdvReac Type Severity Reaction Status Date / Time esomeprazole [From Nexium] Allergy Hives Verified 04/08/17 04:24 oxaprozin [From Daypro] Allergy Hives Verified 04/08/17 04:24 esomeprazole magnesium * AdvReac Rash Verified 04/08/17 04:24 [From Nexium] - MEDICATIONS Home Medications: Ambulatory Orders Medication Instructions Recorded Confirmed Alprazolam 0.125 mg PO DAILY 12/30/13 04/08/17 Atorvastatin [Lipitor] 40 mg PO QPM 12/30/13 04/08/17 Calcium Carb, Citrate/Vit D3 600 mg PO DAILY 12/30/13 04/08/17 [Calcium + D3 ER Tablet] Multivitamin [Multi-Day Vitamins] 1 each PO DAILY 12/30/13 04/08/17 Pantoprazole Sodium 40 mg PO DAILY 12/30/13 04/08/17 Tamsulosin [Flomax] 0.4 mg PO DAILY 12/30/13 04/08/17 Tramadol HCl 50 mg PO BID 12/30/13 04/08/17 Metoprolol Succinate [Toprol Xl] 50 mg PO DAILY 02/10/14 04/08/17 Acetaminophen [Tylenol Extra 500 mg PO BID 04/08/17 04/08/17 Strength] Acetaminophen [Tylenol] 650 mg PO Q4HR PRN tablet 04/08/17 Amlodipine Besylate 5 mg PO DAILY 04/08/17 04/08/17 Clopidogrel Bisulfate [Clopidogrel] 75 mg PO DAILY 04/08/17 04/08/17 Furosemide 20 mg PO DAILY 04/08/17 04/08/17 Isosorbide Mononitrate [Isosorbide 120 tab PO DAILY 04/08/17 04/08/17 Mononitrate ER] [place]-3 Acid Ethyl Esters [Lovaza] 1 gm PO DAILY 04/08/17 04/08/17 Ranolazine [Ranexa] 500 mg PO BID 04/08/17 04/08/17 Sertraline HCl 50 mg PO DAILY 04/08/17 04/08/17 Warfarin Sodium [Jantoven] 4 mg PO DAILY 04/08/17 04/08/17 - PHYSICAL EXAM AT DISCHARGE General Appearance: positive: No acute distress Eyes Bilateral: positive: PERRL, Other (recent right lower lid surgery-healed, but with deformity.) ENT: positive: ENT inspection nml, Other (chronic post-nasal drip) Neck: positive: Nml inspection, Thyroid nml, No JVD Respiratory: positive: Other (scattered crackles throughout all lung ross, respiratory rate normalized) Cardiovascular: positive: Irregularly irregular, Systolic murmur, Decreased pulse(s) Abdomen: positive: Tenderness (Bilateral low abdomen-with palpation) Back: positive: Nml inspection Skin: positive: Dry Extremities: positive: Pedal edema (+2 bilateral low extremities.) Neurologic/Psychiatric: positive: Oriented x3 - LABS Result Diagrams: 04/08/17 03:54 04/08/17 03:54 Other Lab Results: Troponin 0.74 04/08/17 @ 10am. BNP 1450 on admission. - DIAGNOSTIC IMAGING Diagnostic Imaging Results Comments: Echocardiogram completed at bedside-pending. - FOLLOW UP Follow Up: Dr. Camejo, Cardiology PCP as directed by discharging facility"
[2017-04-08 13:28] VITALS: BP 101/57
[2017-04-08] MEDS ORDERED: WARFARIN 1 MG TABLET PO SCH (14:00)
== END 2017-04-08 14:15 | disposition short-term general hospital (02) | DRG 291 ==
LOC: EDUNIT# → ED 03:33 → SUPCPDRO 03:33 → MS2 04:28 → ED 05:41
PROVIDERS: ADMIT Internal Medicine; ATTEND Nurse Practitioner
DX: I50.9 Heart failure, unspecified (principal); I13.0 Hypertensive heart and chronic kidney disease with heart failure and stage 1 through stage 4 chronic kidney disease, or unspecified chronic kidney disease; I50.23 Acute on chronic systolic (congestive) heart failure; R79.89 Other specified abnormal findings of blood chemistry; R06.03 Acute respiratory distress; N18.3 Chronic kidney disease, stage 3 (moderate); Z95.0 Presence of cardiac pacemaker; I48.2 Chronic atrial fibrillation; E78.5 Hyperlipidemia, unspecified; F32.9 Major depressive disorder, single episode, unspecified; K59.03 Drug induced constipation; T40.4X5D Adverse effect of other synthetic narcotics, subsequent encounter; I25.10 Atherosclerotic heart disease of native coronary artery without angina pectoris; G89.29 Other chronic pain; M25.511 Pain in right shoulder; M19.90 Unspecified osteoarthritis, unspecified site; N40.0 Benign prostatic hyperplasia without lower urinary tract symptoms; H35.30 Unspecified macular degeneration; H54.7 Unspecified visual loss; H91.90 Unspecified hearing loss, unspecified ear; K44.9 Diaphragmatic hernia without obstruction or gangrene; Z79.01 Long term (current) use of anticoagulants; Z79.899 Other long term (current) drug therapy; Z95.1 Presence of aortocoronary bypass graft; Z95.5 Presence of coronary angioplasty implant and graft; Z85.828 Personal history of other malignant neoplasm of skin
CPT/HCPCS: 36415; 71010; 80053; 83605; 83690; 83735; 83880; 84100; 84443; 84484; 85025; 85610; 87040; 93005; 93306; 96374; 99284; 99285

== ENCOUNTER 2017-04-29 10:09 | Outpatient (CLI) | payer MEDICARE, OTHER | END 2017-04-29 10:10 | disposition home or self-care (01) | LOC: LAB.F 10:09 | PROVIDERS: ATTEND Internal Medicine | DX: I74.8 Embolism and thrombosis of other arteries (principal) | CPT/HCPCS: 85610 ==

== ENCOUNTER 2017-05-03 07:15 | Outpatient (CLI) | payer MEDICARE, OTHER | END 2017-05-03 07:16 | disposition home or self-care (01) | LOC: LAB.F 07:15 | PROVIDERS: ATTEND Internal Medicine | DX: I74.8 Embolism and thrombosis of other arteries (principal) | CPT/HCPCS: 85610 ==

== ENCOUNTER 2017-05-10 07:14 | Outpatient (CLI) | payer MEDICARE, OTHER | END 2017-05-10 07:15 | disposition home or self-care (01) | LOC: LAB.F 07:14 | PROVIDERS: ATTEND Internal Medicine | DX: I74.8 Embolism and thrombosis of other arteries (principal) | CPT/HCPCS: 85610 ==

== ENCOUNTER 2017-05-14 05:14 | Outpatient (CLI) | payer MEDICARE, OTHER | END 2017-05-14 05:15 | disposition EMS.NT | LOC: EMS 05:14 | PROVIDERS: ATTEND Surgery | DX: Z03.89 Encounter for observation for other suspected diseases and conditions ruled out (principal); W01.0XXA Fall on same level from slipping, tripping and stumbling without subsequent striking against object, initial encounter; Y92.009 Unspecified place in unspecified non-institutional (private) residence as the place of occurrence of the external cause ==

== ENCOUNTER 2017-05-16 14:05 | Outpatient (CLI) | payer MEDICARE, OTHER | END 2017-05-16 14:06 | disposition short-term general hospital (02) | LOC: EMS 14:05 | PROVIDERS: ATTEND Surgery | DX: R53.1 Weakness (principal); R25.1 Tremor, unspecified | CPT/HCPCS: A0170; A0425; A0429 ==

== ENCOUNTER 2017-05-24 07:15 | Outpatient (CLI) | payer MEDICARE, OTHER | END 2017-05-24 07:16 | disposition home or self-care (01) | LOC: LAB.F 07:15 | PROVIDERS: ATTEND Internal Medicine | DX: I74.8 Embolism and thrombosis of other arteries (principal) | CPT/HCPCS: 85610 ==

== ENCOUNTER 2017-06-04 07:11 | Outpatient (CLI) | payer MEDICARE, OTHER | END 2017-06-04 07:12 | disposition home or self-care (01) | LOC: LAB.F 07:11 | PROVIDERS: ATTEND Internal Medicine | DX: I74.8 Embolism and thrombosis of other arteries (principal) | CPT/HCPCS: 85610 ==

== ENCOUNTER 2017-06-21 07:06 | Outpatient (CLI) | payer MEDICARE, OTHER | END 2017-06-21 07:07 | disposition home or self-care (01) | LOC: LAB.F 07:06 | PROVIDERS: ATTEND Internal Medicine | DX: I74.8 Embolism and thrombosis of other arteries (principal) | CPT/HCPCS: 85610 ==

== ENCOUNTER 2017-07-10 07:13 | Outpatient (CLI) | payer MEDICARE, OTHER | END 2017-07-10 07:14 | disposition home or self-care (01) | LOC: LAB.F 07:13 | PROVIDERS: ATTEND Internal Medicine | DX: I74.8 Embolism and thrombosis of other arteries (principal) | CPT/HCPCS: 85610 ==

== ENCOUNTER 2017-09-04 07:21 | Outpatient (CLI) | payer MEDICARE, OTHER | END 2017-09-04 07:22 | disposition home or self-care (01) | LOC: LAB.F 07:21 | PROVIDERS: ATTEND Internal Medicine | DX: I74.8 Embolism and thrombosis of other arteries (principal) | CPT/HCPCS: 85610 ==

== ENCOUNTER 2017-10-02 07:12 | Outpatient (CLI) | payer MEDICARE, OTHER | END 2017-10-02 07:13 | disposition home or self-care (01) | LOC: LAB.F 07:12 | PROVIDERS: ATTEND Internal Medicine | DX: I74.8 Embolism and thrombosis of other arteries (principal) | CPT/HCPCS: 85610 ==

== ENCOUNTER 2017-10-29 07:43 | Outpatient (CLI) | payer MEDICARE, OTHER ==
[2017-10-29 12:09] LABS: MEAN RETIC VALUE 129.9; RED BLOOD COUNT 2.96 10^6/uL (4.70-6.10)
[2017-10-29 12:25] LABS: FERRITIN 75.5 ng/mL (23.9-336.2)
[2017-10-29 14:31] LABS: % IRON SATURATION 22 % (20-50); IRON 68 ug/dL (45-182); TOTAL IRON BINDING CAPACITY 311 ug/dL (250-450); TRANSFERRIN 222 mg/dL (180-329)
== END 2017-10-29 07:44 | disposition home or self-care (01) ==
LOC: LAB.F 07:43
PROVIDERS: ATTEND Internal Medicine Cardiovascular Disease
DX: D64.9 Anemia, unspecified (principal); I20.8 Other forms of angina pectoris
CPT/HCPCS: 36415; 82607; 82728; 82747; 83540; 84466; 85044

== ENCOUNTER 2017-10-30 09:48 | Outpatient (CLI) | payer MEDICARE, OTHER | END 2017-10-30 09:49 | disposition home or self-care (01) | LOC: LAB.F 09:48 | PROVIDERS: ATTEND Internal Medicine | DX: I74.8 Embolism and thrombosis of other arteries (principal) | CPT/HCPCS: 85610 ==

== ENCOUNTER 2017-11-12 17:41 | Outpatient (CLI) | payer MEDICARE, OTHER | END 2017-11-12 17:42 | disposition critical access hospital (66) | LOC: EMS 17:41 | PROVIDERS: ATTEND Surgery | DX: S01.01XA Laceration without foreign body of scalp, initial encounter (principal); W18.30XA Fall on same level, unspecified, initial encounter; W22.8XXA Striking against or struck by other objects, initial encounter; W25.XXXA Contact with sharp glass, initial encounter; Y92.000 Kitchen of unspecified non-institutional (private) residence as the place of occurrence of the external cause | CPT/HCPCS: A0425; A0429 ==

== ENCOUNTER 2017-11-12 18:11 | Emergency (ER) | payer MEDICARE, OTHER ==
[2017-11-12 18:39] LABS: BASOPHILS % (AUTO) 0.7 %; EOSINOPHILS # (AUTO) 0.4 10^3/uL (0.0-0.7); EOSINOPHILS % (AUTO) 9.2 %; HGB - HEMOGLOBIN 9.7 g/dL (14.0-18.0); LYMPHOCYTES # (AUTO) 1.1 10^3/uL (1.5-3.5); MEAN CORPUSCULAR HEMOGLOBIN 32.3 pg (27.0-31.0); MEAN CORPUSCULAR HGB CONC 32.9 g/dL (32.0-36.0); MEAN CORPUSCULAR VOLUME 98.2 fL (80.0-94.0); MEAN PLATELET VOLUME 8.4 fL (7.4-11.4); MONOCYTES # (AUTO) 0.9 10^3/uL (0.0-1.0); MONOCYTES % (AUTO) 18.8 %; NEUTROPHILS # (AUTO) 2.4 10^3/uL (1.5-6.6); NEUTROPHILS % (AUTO) 49.3 %; PLT - PLATELET COUNT 177 10^3/uL (130-450); RED CELL DISTRIBUTION WIDTH 14.1 % (12.0-15.0); WHITE BLOOD COUNT 4.9 x10^3/uL (4.8-10.8)
[2017-11-12 18:44] LABS: INR 1.6 (0.8-1.2); PT - PROTHROMBIN TIME 18.1 secs (9.9-12.6)
[2017-11-12 18:47] LABS: ALBUMIN 3.7 g/dL (3.2-5.5); ALBUMIN/GLOBULIN RATIO 1.2 (1.0-2.2); BILIRUBIN,TOTAL 0.6 mg/dL (0.2-1.0); CALCIUM 9.1 mg/dL (8.5-10.3); CREATININE 2.3 mg/dL (0.6-1.2); TOTAL PROTEIN 6.9 g/dL (6.7-8.2)
--- NOTE | 2017-11-12 19:04 | ED Physician Documentation ---
PD HPI HEAD INJURY - Stated complaint Stated Complaint: GLF, HEAD INJ - Chief complaint Chief Complaint: Laceration - History obtained from History obtained from: Patient, Family, EMS - History of Present Illness Mechanism of head injury: Fell (89yo with CAD/AFIB on warfarin. He is on warfarin break for the last few days Because he has an elective cath scheduled tomorrow for stents. He was bent over today and any kind of got up quickly and lost his balance and fell backwards hitting the back of the oven glass with the back of his head and has a small laceration there. He is up-to-date on tetanus and pain is minimal. There was no loss of consciousness.) Review of Systems Constitutional: denies: Fever, Chills Nose: reports: Reviewed and negative Cardiac: reports: Reviewed and negative Respiratory: reports: Reviewed and negative GI: reports: Reviewed and negative PD PAST MEDICAL HISTORY - Past Medical History Past Medical History: Yes Cardiovascular: Congestive heart failure, Hypertension, High cholesterol, Coronary artery disease, Atrial fibrillation, Other Respiratory: None GI: Hiatal hernia : Benign prostate hypertrophy, Renal insuffiency, Frequency HEENT: Chronic vision loss, Macular degeneration, Chronic hearing loss Psych: Depression Musculoskeletal: Osteoarthritis, Other Derm: Other - Past Surgical History Past Surgical History: Yes Ortho: Rotator cuff repair, Other Cardiovascular: CABG, Coronary stent, Pacemaker HEENT: Cataracts Derm: Skin cancer surgery - Present Medications Home Medications: Ambulatory Orders Medication Instructions Recorded Confirmed Alprazolam 0.125 mg PO DAILY 12/30/13 04/08/17 Atorvastatin [Lipitor] 40 mg PO QPM 12/30/13 04/08/17 Calcium Carb, Citrate/Vit D3 600 mg PO DAILY 12/30/13 04/08/17 [Calcium + D3 ER Tablet] Multivitamin [Multi-Day Vitamins] 1 each PO DAILY 12/30/13 04/08/17 Pantoprazole Sodium 40 mg PO DAILY 12/30/13 04/08/17 Tamsulosin [Flomax] 0.4 mg PO DAILY 12/30/13 04/08/17 Tramadol HCl 50 mg PO BID 12/30/13 04/08/17 Metoprolol Succinate [Toprol Xl] 50 mg PO DAILY 02/10/14 04/08/17 Acetaminophen [Tylenol Extra 500 mg PO BID 04/08/17 04/08/17 Strength] Acetaminophen [Tylenol] 650 mg PO Q4HR PRN tablet 04/08/17 Amlodipine Besylate 5 mg PO DAILY 04/08/17 04/08/17 Clopidogrel Bisulfate [Clopidogrel] 75 mg PO DAILY 04/08/17 04/08/17 Furosemide 20 mg PO DAILY 04/08/17 04/08/17 Isosorbide Mononitrate [Isosorbide 120 tab PO DAILY 04/08/17 04/08/17 Mononitrate ER] [place]-3 Acid Ethyl Esters [Lovaza] 1 gm PO DAILY 04/08/17 04/08/17 Ranolazine [Ranexa] 500 mg PO BID 04/08/17 04/08/17 Sertraline HCl 50 mg PO DAILY 04/08/17 04/08/17 Warfarin Sodium [Jantoven] 4 mg PO DAILY 04/08/17 04/08/17 - Allergies Allergies/Adverse Reactions: Allergies Allergy/AdvReac Type Severity Reaction Status Date / Time esomeprazole [From Nexium] Allergy Hives Verified 04/08/17 04:24 oxaprozin [From Daypro] Allergy Hives Verified 04/08/17 04:24 esomeprazole magnesium * AdvReac Rash Verified 04/08/17 04:24 [From Nexium] - Social History Does the pt smoke?: No Smoking Status: Never smoker Does the pt drink ETOH?: Yes Does the pt have substance abuse?: No - Immunizations Immunizations are current?: Yes - POLST Patient has POLST: No POLST Status: Full Code PD ED PE NORMAL - Vitals Vital signs reviewed: Yes - General General: Alert and oriented X 3, No acute distress - HEENT HEENT: PERRL, EOMI, Other (There is an abrasion mid occiput, nothing deep or needing suturing.) - Neck Neck: Supple, no meningeal sign, No bony TTP - Neuro Neuro: Alert and oriented X 3, fan installer 2-12 intact Eye Opening: Spontaneous Motor: Obeys Commands Verbal: Oriented GCS Score: 15 - Psych Psych: Normal mood, Normal affect Results - Vitals Vitals: Vital Signs - 24 hr 11/12/17 11/12/17 11/12/17 18:17 19:10 19:24 Temperature 36.7 C Heart Rate 108 H 58 L 59 L Respiratory 16 20 17 Rate Blood Pressure 108/67 89/57 L 147/66 H O2 Saturation 97 95 96 11/12/17 20:30 Temperature 36.5 C Heart Rate 60 Respiratory 15 Rate Blood Pressure 165/75 H O2 Saturation 99 Oxygen O2 Source Room air - Labs Labs: Laboratory Tests 11/12/17 11/12/17 11/12/17 18:17 18:17 18:17 WBC 4.9 RBC 3.00 L Hgb 9.7 L Hct 29.5 L MCV 98.2 H MCH 32.3 H MCHC 32.9 RDW 14.1 Plt Count 177 MPV 8.4 Neut # 2.4 Lymph # 1.1 L [place] # 0.9 Eos # 0.4 Baso # 0.0 Absolute Nucleated RBC 0.01 Nucleated RBC % 0.1 PT 18.1 H INR 1.6 H Sodium 133 L Potassium 4.6 Chloride 100 L Carbon Dioxide 23 Anion Gap 10.0 BUN 59 H Creatinine 2.3 H Estimated GFR (MDRD) 27 L Glucose 100 Calcium 9.1 Total Bilirubin 0.6 AST 20 ALT 21 Alkaline Phosphatase 51 Total Protein 6.9 Albumin 3.7 Globulin 3.2 Albumin/Globulin Ratio 1.2 Lipase 44 - Rads (name of study) CT Head Radiology: EMP read contemporaneously (NAD, sinusitis, possibly fungal) CT C spine Radiology: EMP read contemporaneously (NAD) PD MEDICAL DECISION MAKING - ED course ED course: 89-year-old gentleman on warfarin break but still undetectable INR presents after a head injury with mechanical fall. Noted to have a creatinine of 2.3 today, his baseline is about 1.8 and echo from last year reviewed with an EF of 50-55%. Case discussed by phone with Dr. Lema transition nurse for his media developer given the plan for elective cath tomorrow and she recommends a 500 mL bolus and to call Dr. Camejo in the morning. Also hold the Lasix. Departure - Departure Disposition: 01 Home, Self Care Clinical Impression: Atrial fibrillation Qualifiers: Atrial fibrillation type: chronic Qualified Code(s): I48.2 - Chronic atrial fibrillation Hypertension Qualifiers: Hypertension type: essential hypertension Qualified Code(s): I10 - Essential ( primary) hypertension Scalp laceration Qualifiers: Encounter type: initial encounter Qualified Code(s): S01.01XA - Laceration without foreign body of scalp, initial encounter Condition: Good Record reviewed to determine appropriate education?: Yes Instructions: ED Head Injury Closed Comments: Call Dr. Camejo in the morning. I spoke with his partner max and we gave you the IV fluids. Do not take your Lasix/furosemide tomorrow. Call him at 7 AM. Let him know that your creatinine today was 2.3 with a baseline of 1.8. The CAT scan of your head is without evidence of bleeding in your brain or other brain injury, that said it appears to have chronic sinusitis, potentially with a fungal component. At some point in the not too distant future follow-up with your physician for this, and get a referral to an ear nose and throat surgeon. Discharge Date/Time: 11/12/17 20:35
--- NOTE | 2017-11-12 19:13 | CT Preliminary Report ---
Exam: CT HEAD W/O IMPRESSION: 1. No acute intracranial abnormality nor bleed. 2. 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 Partially calcified contents last se the possibility of aspergillosis or other fungal disease. [facility] SITE ID: [id number]
--- NOTE | 2017-11-12 19:18 | CT Preliminary Report ---
Exam: CT CERVICAL SPINE W/O IMPRESSION: No acute bony abnormality. [facility] SITE ID: [id number]
--- NOTE | 2017-11-12 19:19 | CT Report ---
EXAM: CT HEAD EXAM DATE: 11/12/2017 06:43 PM. CLINICAL HISTORY: Fall, head injury. pain. COMPARISON: None. TECHNIQUE: Multiaxial CT images were obtained from the foramen magnum to the vertex. Reformats: Coron al. IV contrast: None. In accordance with CT protocol optimization, one or more of the following dose reduction techniques w ere utilized for this exam: automated exposure control, adjustment of mA and/or KV based on patient s ize, or use of iterative reconstructive technique. FINDINGS: Parenchyma: No intraparenchymal hemorrhage. No evidence of mass, midline shift, or CT findings of acu te infarction. Sanchez-white differentiation is distinct. Diffuse chronic microangiopathic white matter changes are evident. Extraaxial Spaces: Normal for age. No subdural or epidural collections identified. Ventricles: The ventricles and cortical sulci are enlarged, consistent with age-related tissue loss. Sinuses and orbits: Complete opacification, sclerotic wall thickening, and enlargement of the right m axillary sinus compromising the right nasal airway. Extensive lacy calcifications throughout the cont ents of the right maxillary sinus. Bones: No evidence of fracture or calvarial defect. Other: Pacer. Sternotomy. Right total shoulder replacement. IMPRESSION: 1. No acute intracranial abnormality nor bleed. 2. 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 Partially calcified contents last se the possibility of aspergillosis or other fungal disease. [facility] Referring Provider Line: [phone] SITE ID: [id number]
--- NOTE | 2017-11-12 19:21 | CT Report ---
EXAM: CT CERVICAL SPINE WITHOUT CONTRAST. DATE: 11/12/2017 06:43 PM. HISTORY: Fall head injury. Neck pain. COMPARISONS: None. TECHNIQUE: Thin-section axial images were acquired of the cervical spine without contrast. Post-proce ssing: Coronal and sagittal reformats. Other: None. In accordance with CT protocol optimization, one or more of the following dose reduction techniques w ere utilized for this exam: automated exposure control, adjustment of mA and/or KV based on patient s ize, or use of iterative reconstructive technique. FINDINGS: Alignment: Mild kyphosis centered at C5. Bones: Old mild wedging C5, C6, C7 and T1. Trabecular and cortical patterns are intact. Interspace Levels/Facets: Multilevel marked degenerative changes, greatest at C5-C6, C6-C7 and C7-T1. Greatest degree of central spinal canal stenosis is moderate at C6-C7. Multilevel marked bony neuroforaminal compromise. Musculature: Normal. No fatty atrophy. Other: Sternotomy. Pacer. Right total shoulder replacement. The lung apices are clear. IMPRESSION: No acute bony abnormality. [facility] Referring Provider Line: [phone] SITE ID: [id number]
[2017-11-12] MEDS ORDERED: SODIUM CHLORIDE 0.9% 500 ML IV ONE (19:23)
[2017-11-12 20:41] VITALS: BP 165/75
== END 2017-11-12 20:35 | disposition home or self-care (01) ==
LOC: EDUNIT# → ED 18:11
DX: S00.01XA Abrasion of scalp, initial encounter (principal); W01.198A Fall on same level from slipping, tripping and stumbling with subsequent striking against other object, initial encounter; J32.0 Chronic maxillary sinusitis; I48.2 Chronic atrial fibrillation; Z79.01 Long term (current) use of anticoagulants; I25.10 Atherosclerotic heart disease of native coronary artery without angina pectoris; I11.0 Hypertensive heart disease with heart failure; I50.9 Heart failure, unspecified; Z95.1 Presence of aortocoronary bypass graft; Z95.5 Presence of coronary angioplasty implant and graft; Z95.0 Presence of cardiac pacemaker
CPT/HCPCS: 36415; 70450; 72125; 80053; 83690; 85025; 85610; 99284